=== PATIENT | male | born 1975 | race Caucasian/White ===

== ENCOUNTER 2016-07-11 11:51 | Emergency (ER) | payer MEDICAID ==
[2016-07-11 12:33] VITALS: BP 142/80
[2016-07-11] MEDS ORDERED: Lidocaine 1% with EPINEPHrine 1:100,000 20 ML MDV INJECT ONE (14:11)
--- NOTE | 2016-07-11 14:11 | EDM.PDOC ---
ED HPI ANIMAL BITE - General Time Seen by Provider: 07/11/16 14:07 Chief Complaint: Bite:Animal, Insect Stated Complaint: BIT BY DOG Source of Information: Reports: Patient History Limitations: Reports: No limitations - History of Present Illness INITIAL COMMENTS - FREE TEXT/NARRATIVE: pt states that he was trying to break up a dog fight and was biten on the right hand/wrist by one. Dogs immunization is up to date. Has small laceration and puncture wounds to dorsal hand and sotelo wrist Onset of Symptoms: Reports: today Symptom Onset Date: 07/11/16 Symptom Onset Time: 10:00 Location: Reports: upper extremity, right Quality: Reports: Sharp Place of Occurrence: home Improves with: Reports: None Worsens with: Reports: Movement Context: Reports: bitten Description of Animal: Reports: dog, immunized, animal able to be watched Treatments [employer]: Reports: Dressing(s) - Related Data Allergies Allergy/AdvReac Type Severity Reaction Status Date / Time amoxicillin trihydrate Allergy Rash Verified 07/11/16 12:19 [From Augmentin] potassium clavulanate Allergy Rash Verified 07/11/16 12:19 [From Augmentin] Home Meds: Home Meds Albuterol [Proventil HFA] 2 puff INH Q4H PRN 12/15/13 [History] Cyclobenzaprine [Flexeril] 10 mg PO TID PRN 12/15/13 [History] Past Medical History Respiratory History: Reports: Other (see below) Other Respiratory History: smoker "no copd" Musculoskeletal History: Reports: Back pain, chronic - Infectious Disease History Infectious Disease History: Reports: Chicken pox - Past Surgical History GI Surgical History: Reports: Hernia repair/other Social & Family History - Family History Family Medical History: Noncontributory - Tobacco Use Smoking Status *Q: Current Every Day Smoker Years of Tobacco use: 22 Packs/Tins Daily: 1 Used Tobacco, but Quit: No Second Hand Smoke Exposure: Yes - Caffeine Use Caffeine Use: Reports: Coffee - Alcohol Use Days Per Week of Alcohol Use: 2 Number of Drinks Per Day: 2 Total Drinks Per Week: 4 - Recreational Drug Use Recreational Drug Use: No ED ROS GENERAL - Review of Systems Review Of Systems: See Below Skin: Reports: wound ED EXAM, ANIMAL BITE - Physical Exam Exam: See Below Exam Limited By: No limitations General Appearance: alert, WD/WN, no apparent distress Skin Exam: Normal color, Warm/dry, Other (laceration to right dorsal hand, R sotelo wrist. puncture to dorsal right hand x 3) ED ANIMAL BITE PROCEDURES - Laceration/Wound Repair Right Posterior Lateral Distal Wrist Lac/wound length in cm: 2 Appearance: superficial Distal NVT: neuro & vascular intact Anesthetic type: local Local anesthesia - Lidocaine (Xylocaine): 1% with epi Local anesthetic volume: 2cc Skin prep: chlorhexidine (hibiciens), providone-iodine (betadine) Saline irrigation (cc's): 20 Closed with: sutures Suture size: 3-0 # of sutures: 1 Suture type: nylon, interrupted, simple Drain placement: No Sterile dressing applied: nurse Tetanus status addressed: Yes Complications: No Right Anterior Distal Wrist Lac/wound length in cm: 2 Appearance: subcutaneous Distal NVT: neuro & vascular intact Anesthetic type: local Local anesthesia - Lidocaine (Xylocaine): 1% with epi Local anesthetic volume: 2cc Skin prep: chlorhexidine (hibiciens), providone-iodine (betadine) Saline irrigation (cc's): 20 Closed with: sutures Suture size: 3-0 # of sutures: 1 Suture type: nylon, interrupted, simple Drain placement: No Sterile dressing applied: nurse Tetanus status addressed: Yes Complications: No Course - Vital Signs Last Recorded V/S: Last Vital Signs Temp 98.0 F 07/11/16 12:32 Pulse 87 07/11/16 12:32 Resp 18 07/11/16 12:32 BP 142/80 H 07/11/16 12:32 Pulse Ox 97 07/11/16 12:32 - Orders/Labs/Meds Orders: Active Orders 24 hr Category Date Time Status Wrist 2V Rt [CR] Urgent Exams 07/11/16 14:07 Taken Ibuprofen [Motrin] Med 07/11/16 15:17 Once 800 mg PO ONETIME ONE Meds: Medications Discontinued Medications Generic Name Dose Route Start Last Admin Trade Name Angelia PRN Reason Stop Dose Admin Lidocaine/Epinephrine 20 ml 07/11/16 14:11 07/11/16 15:05 Xylocaine 1% With Epinephrine 1:100,000 INJECT 07/11/16 14:12 20 ml ONETIME ONE Administration Departure - Departure Time of Disposition: 15:21 Disposition: Home, Self-Care 01 Condition: good Clinical Impression: Laceration - injury, Animal bite wound Instructions: Animal Bite, [id number], Laceration Care, Adult Forms: ED Department Discharge Additional Instructions: Follow up in 4-5 days to clinic for wound recheck and suture removal. Return for any worsening symptoms, drainage or signs of infection - My Orders Last 24 Hours: My Active Orders 07/11/16 14:07 Wrist 2V Rt [CR] Urgent 07/11/16 15:17 Ibuprofen [Motrin] 800 mg PO ONETIME ONE - Assessment/Plan Last 24 Hours: My Active Orders 07/11/16 14:07 Wrist 2V Rt [CR] Urgent 07/11/16 15:17 Ibuprofen [Motrin] 800 mg PO ONETIME ONE
[2016-07-11] MEDS ORDERED: Ibuprofen 800 MG Tab PO ONE (15:17)
== END 2016-07-11 15:37 | disposition home or self-care (01) ==
LOC: DL.ED 11:51
DX: S61.511A Laceration without foreign body of right wrist, initial encounter (principal); S61.411A Laceration without foreign body of right hand, initial encounter; F17.210 Nicotine dependence, cigarettes, uncomplicated; Z88.1 Allergy status to other antibiotic agents; W54.0XXA Bitten by dog, initial encounter; Y92.009 Unspecified place in unspecified non-institutional (private) residence as the place of occurrence of the external cause
CPT/HCPCS: 12002; 73100; 99283; A9270

== ENCOUNTER 2024-09-29 17:26 | Emergency (ER) | payer MEDICARE, MEDICAID ==
[2024-09-29] MEDS: Lactated Ringers 1,000 ML IV ONE ×2 (17:44→18:30)
[2024-09-29 17:49] LABS: BASOPHILS PERCENT AUTO 0.5 % (0.0-1.0); HEMATOCRIT 47.6 % (40.0-54.0); LYMPHOCYTES PERCENT AUTO 10.8 % (20.5-50.1); MEAN CORPUSCULAR HEMOGLOBIN 31.2 pg (27.0-34.0); MEAN CORPUSCULAR HGB CONC 35.7 g/dL (33.0-35.0); MEAN CORPUSCULAR VOLUME 87.3 fL (80-100); MONOCYTES PERCENT AUTO 9.5 % (2-8); NEUTROPHILS PERCENT AUTO 79.2 % (42.2-75.2); PLATELET COUNT,PLT 185 10^3/uL (150-450); RED BLOOD CELL COUNT 5.45 10^6/uL (4.6-6.2); WHITE BLOOD CELL COUNT,WBC 9.4 10^3/uL (5.0-10.0)
[2024-09-29 18:09] LABS: A/G RATIO 0.9; ALBUMIN 3.6 g/dL (3.4-5.0); ANION GAP 16.8 mEq/L (7-13); BILIRUBIN TOTAL 0.9 mg/dL (0.2-1.0); BUN/CREATININE RATIO 9.1 (No establ ref range); CREATININE 1.43 mg/dL (0.70-1.30); EST CRCL DRUG DOSING (CG) 52.12 mL/min; POTASSIUM,K 2.8 mmol/L (3.5-5.1); PROTEIN TOTAL,TP 7.7 g/dL (6.4-8.2)
[2024-09-29 18:13] LABS: LACTIC ACID 3.2 mmol/L (0.4-2.0)
[2024-09-29] MEDS: cefTRIAXone 1 GM Vial IVPUSH ONE (18:23)
[2024-09-29] MEDS: Potassium Chloride 10 MEQ Tab.ER PO ONE (18:23)
[2024-09-29] MEDS: Azithromycin 500 MG in Sodium Chloride 0.9% 250 ML IV ONE (18:23)
[2024-09-29] MEDS: methylPREDNISolone Sodium Succinate 125 MG/2 ML SDV IVPUSH ONE (18:23)
[2024-09-29 18:27] LABS: C-REACTIVE PROTEIN 6.62 ng/dL (<=0.50); MAGNESIUM 1.8 mg/dL (1.8-2.4)
[2024-09-29] MEDS: guaiFENesin/Dextromethorphan 100-10 MG/5 ML Soln 5 ML Cup PO ONE (18:35)
[2024-09-29 19:31] VITALS: BP 111/81; PULSE 97
[2024-09-29] MEDS: Acetaminophen 500 MG Tab PO ONE (19:35)
== END 2024-09-29 21:00 | disposition home or self-care (01) ==
LOC: DL.ED 17:26
DX: J44.1 Chronic obstructive pulmonary disease with (acute) exacerbation (principal); J18.9 Pneumonia, unspecified organism; Z88.1 Allergy status to other antibiotic agents; Z79.51 Long term (current) use of inhaled steroids; Z79.899 Other long term (current) drug therapy
CPT/HCPCS: 36415; 71046; 80053; 83605; 83735; 83880; 85025; 86140; 87040; 96365; 96375; 99285; A9270; J0456; J0696; J2919; J7050; J7120